=== PATIENT | male | born 1980 | race Caucasian/White ===

== ENCOUNTER 2024-07-13 10:52 | Emergency (ER) | payer OTHER, SELFPAY ==
[2024-07-13 11:05] VITALS: BP 144/87; PULSE 92; RESP 18; TEMP 38.9; O2SAT 95; BMI 23.6
[2024-07-13] MEDS: ACETAMINOPHEN 500 MG TABLET 1000 MG PO (11:26)
--- NOTE | 2024-07-13 11:32 | ED_ITS ---
HPI - General Adult General Chief complaint: Cough Stated complaint: coughing up fluids Time Seen by Provider: 07/13/24 11:00 Source: patient Mode of arrival: ambulatory Limitations: no limitations History of Present Illness HPI narrative: 43-year-old male presenting with fever, body aches and chest pain that started yesterday. Chest pain is located centrally, started this morning. He is not short of breath but he is coughing quite a bit. One episode of vomiting this morning. No significant diarrhea. No urinary symptoms. No abdominal pain. Significant other has similar symptoms. Past medical history significant for depression, patient takes sertraline. Related Data Home Medications ?Medication ?Instructions ?Recorded ?Confirmed sertraline .ROUTE 07/13/24 Previous Rx's ?Medication ?Instructions ?Recorded oseltamivir 75 mg capsule (Tamiflu) 75 mg PO BID 5 days #10 caps 07/13/24 oseltamivir 75 mg capsule (Tamiflu) 75 mg PO BID 5 days #10 caps 07/13/24 Allergies Allergy/AdvReac Type Severity Reaction Status Date / Time No Known Drug Allergies Allergy Verified 07/13/24 11:03 Review of Systems Status of ROS: Reports: 10 or more systems reviewed and unremarkable except as noted in History and below PFSH PFSH Social History Smoking Status: Former smoker What tobacco products do you use: cigarettes Smoking packs per day: 2 Smoking cigarettes per day: 40.0 Smoking quit date/years: <= 15 years ago Do you use any of these nicotine containing products: Vaping Products Second hand tobacco smoke exposure: No How often do you have a drink containing alcohol: monthly or less How many standard drinks containing alcohol do you have on a typical day: 1 or 2 How often do you have six or more drinks on one occasion: Never AUDIT-C Alcohol total score: 1 Non-prescribed substance use: denies use service: No Exam Narrative: Exam Narrative: Well-nourished well-developed patient he, appears ill. Alert and oriented. Answers questions appropriately. Mood and affect are appropriate. Thoughts are goal oriented and rational. No tangential or magical thinking noted. Patient speaks in full sentences without needing to catch his breath, but does cough on and off. HEENT: Normocephalic atraumatic. Pupils are equally round reactive to light. Extraocular muscles are intact. Conjunctivae are moist without any icterus noted. Moist mucous membranes. Posterior pharynx is normal. Neck is soft without any lymphadenopathy or thyromegaly. No masses are appreciated. Cardiovascular: Heart is regular rate and rhythm S1 and S2 are present without any murmurs. Lungs: Clear to auscultation bilaterally no wheezes rhonchi or rales are appreciated. Patient takes deep breaths without any discomfort. Abdomen: Soft and nontender nondistended with normal bowel sounds. Extremities: Bilateral lower extremities are without edema. Skin: Well perfused without any obvious rashes. Const: Vital Signs, click to edit/add: Vital Signs - 24 hr 07/13/24 11:05 Temperature 102.0 F H Pulse Rate [Pulse Oximeter] 92 Respiratory Rate 18 Blood Pressure [Ri t Upper Arm] 144/87 H Pulse Oximetry 95 Oxygen Delivery Me thod Room Air Course Course ED Course: Patient received a dose of Tylenol. EKG, read by me, shows normal sinus rhythm with a pulse of 94. Point of care troponin is 0. Triple swab is positive for influenza A. Vital Signs Vital signs: Initial Vital Signs Temperature 102.0 F H 07/13/24 11:05 Temperature Source Temporal Artery Scan 07/13/24 11:05 Pulse Rate 92 07/13/24 11:05 Respiratory Rate 18 07/13/24 11:05 Blood Pressure 144/87 H 07/13/24 11:05 Blood Pressure Mean 106 H 07/13/24 11:05 Pulse Oximetry 95 07/13/24 11:05 Oxygen Delivery Method Room Air 07/13/24 11:05 Vital Signs Temperature 102.0 F H 07/13/24 11:05 Pulse Rate 92 07/13/24 11:05 Respiratory Rate 18 07/13/24 11:05 Blood Pressure 144/87 H 07/13/24 11:05 Pulse Oximetry 95 07/13/24 11:05 Oxygen Delivery Method Room Air 07/13/24 11:05 Temperature 102.0 F H 07/13/24 11:05 Pulse Rate 92 07/13/24 11:05 Respiratory Rate 18 07/13/24 11:05 Blood Pressure 144/87 H 07/13/24 11:05 Pulse Oximetry 95 07/13/24 11:05 Oxygen Delivery Method Room Air 07/13/24 11:05 Medications Administered Medications: Discontinued Medications Generic Name Dose Route Start Last Admin Trade Name Stephanie PRN Reason Stop Dose Admin Acetaminophen 1,000 mg 07/13/24 11:11 07/13/24 11:26 Acetaminophen 500 Mg Tablet PO 07/13/24 11:12 1,000 mg ONCE ONE Administration Medical Decision Making MDM Narrative Medical decision making narrative: [age] year male with influenza. Will start the patient on Tamiflu. Discussed hydration and reasons for follow-up. [age] do think that his chest pain is related to his body aches at this time a non comes to the syndrome or any other life-threatening pathology. Lab Data Lab results reviewed: Yes I reviewed the patient's lab results Labs: Lab Results 07/13/24 Range/Units 11:07 SARS-CoV-2 (PCR) Negative SARS-CoV-2 (Negative) Influenza Type A (PCR) POSITIVE PCR FLU A A (Negative) Influenza Type B (PCR) Negative PCR FLU B (Negative) RSV (PCR) Negative PCR RSV (Negative) Discharge Plan Discharge Clinical Impression: Influenza A Patient Disposition: Home, Self-Care Condition: Stable Instructions: Influenza (ED) Additional Instructions: Make sure to increase your fluid intake over the next several days. Okay to use ibuprofen and/or Tylenol as needed/as directed for fevers and achiness. Take Tamiflu as prescribed - this medication can shorten the duration of your illnes s. This can cause increase in vomiting, if this occurs stop taking it. You are contagious. If you have to be around other people you should wear mask. Okay to be without your mask starting 24 hours after your last episode of fever. Prescriptions: New oseltamivir [Tamiflu] 75 mg capsule 75 mg PO BID 5 Days Qty: 10 0RF oseltamivir [Tamiflu] 75 mg capsule 75 mg PO BID 5 Days Qty: 10 0RF No Action sertraline .ROUTE Follow Up/Referrals: Provider,Not a Local [Primary Care Provider] - Stand Alone Forms: WhoWantsMe Info Instructions
[2024-07-13 11:51] LABS: PCR FLU A POSITIVE PCR FLU A (Negative); PCR FLU B Negative PCR FLU B (Negative); PCR RSV Negative PCR RSV (Negative); SARS PCR* Negative SARS-CoV-2 (Negative)
== END 2024-07-13 12:20 | disposition home or self-care (01) ==
PROVIDERS: Emergency Provider Family Medicine
DX: J10.1 Influenza due to other identified influenza virus with other respiratory manifestations (principal)
CPT/HCPCS: 84484; 87631; 93005; 99284; A9270